=== PATIENT | male | born 1945 | race Caucasian/White ===

== ENCOUNTER 2017-06-27 12:52 | Outpatient (CLI) | payer MEDICARE ==
[2017-06-27 15:12] LABS: #Basophils 0.1 thou/uL (0.0-0.2); #Lymphocytes 1.1 thou/uL (1.20-3.40); #Monocytes 0.5 thou/uL (0.11-0.59); #Neutrophils 6.5 thou/uL (1.40-6.50); %Basophils 0.7 % (0.0-1.0); %Eosinophils 0.5 % (0.0-10.0); %Lymphocytes 12.9 % (21.0-51.0); %Monocytes 5.6 % (0.0-10.0); %Neutrophils 80.3 % (42.0-75.0); Hemoglobin 14.8 g/dL (14.0-18.0); Mean Corpuscular HGB CONC 33.1 g/dL (32.0-36.0); Mean Corpuscular Hemoglobin 31.6 pg (27.0-31.0); Mean Corpuscular Volume 95.4 fl (80.0-94.0); Mean Platelet Volume 8.1 fL (7.4-10.4); Platelet Count 197 thou/uL (130-400); RBC Distribution Width 12.1 % (11.5-14.5); Red Blood Cell (RBC) Count 4.69 mill/uL (4.70-6.10); White Blood Cell (WBC) Count 8.1 thou/uL (4.8-10.8)
[2017-06-27 15:34] LABS: ALT (SGPT) 40 U/L (8-55); AST (SGOT) 20 U/L (5-34); Albumin 4.5 g/dL (3.4-4.8); Alkaline Phosphatase 67 U/L (40-150); Anion Gap 15 mmol/L (10-20); BUN (Urea Nitrogen) 20 mg/dL (8.4-25.7); Bilirubin, Total 0.6 mg/dL (0.2-1.2); Calc. Creatinine Clearance 0 mL/min (70-130); Calcium 11.5 mg/dL (7.8-10.44); Carbon Dioxide 27 mmol/L (23-31); Chloride 102 mmol/L (98-107); Estimated GFR-MDRD 49; Globulin 2.4 g/dL (2.4-3.5); Glucose 144 mg/dL (83-110); Potassium 4.4 mmol/L (3.5-5.1); Protein, Total 6.9 g/dL (5.8-8.1); Sodium 140 mmol/L (136-145)
--- NOTE | 2017-06-27 23:46 | EKG ---
Test Reason : JAMES Blood Pressure : / mmHG Vent. Rate : 080 BPM Atrial Rate : 097 BPM P-R Int : 000 ms QRS Dur : 162 ms QT Int : 468 ms P-R-T Axes : 000 270 058 degrees QTc Int : 539 ms Electronic ventricular pacemaker When compared with ECG of 08-NOV-2014 13:24, Vent. rate has decreased BY 7 BPM Confirmed by Shayy DOMINGUEZ ([id number]) on 06/27/2017 11:46:11 PM Referred By: ELENI Confirmed By:Shayy DOMINGUEZ
== END 2017-06-27 12:53 | disposition home or self-care (01) ==
LOC: LABBT 12:52
PROVIDERS: ATTEND Surgery
DX: K40.90 Unilateral inguinal hernia, without obstruction or gangrene, not specified as recurrent (principal)
CPT/HCPCS: 80053; 85025; 93005; 93010

== ENCOUNTER 2017-07-04 10:42 | Day surgery (SDC) | payer MEDICARE ==
[2017-06-27 13:21] VITALS: BMI 28.7
[2017-07-04] MEDS ORDERED: Fentanyl 100 MCG/2 ML VIAL ONE ×2 (12:15)
[2017-07-04] MEDS ORDERED: Bupivacaine 0.25% HCL 30 ML VIAL ONE (12:42)
[2017-07-04] MEDS ORDERED: Lidocaine 1% w/Epinephrine 1:200K 30 ML VIAL ONE (12:42)
--- NOTE | 2017-07-04 13:43 | OP ---
PREOPERATIVE DIAGNOSIS: Left inguinal hernia. SURGEON: Gino Johnson M.D. PROCEDURE PERFORMED: Left inguinal hernia repair with mesh. INDICATIONS: This is a 71-year-old male with enlarging left inguinal hernia causing pain. FINDINGS: Left indirect inguinal hernia. PROCEDURE IN DETAIL: After informed consent was obtained, the patient was taken to the operating [facility] and given general mask anesthesia, placed in supine position. His groin area was prepped and drape d in the usual fashion. Local anesthesia infiltrated subcutaneously and deep. A transverse left ing uinal incision was performed. Subcu divided sharply. The fascia incised in the direction of its fib ers through the external ring. The spermatic cord isolated with a Manas drain. The cord was separ ated. Hernia sac was found. This was dissected from surrounding cord structures to the internal rin g and reduced. Reduction was maintained utilizing a PHS hernia system placed in the preperitoneal sp amadou. Anterior, it was laid out, sutured the pubic tubercle medially, tucked under the external obliq ue fascia laterally. A notch was cut out for the spermatic cord. Hemostasis was assured. The cord placed anatomically. The external oblique fascia closed with a running 3-0 Vicryl. Rodger's closed with interrupted 3-0 Vicryl and the skin closed with a running subcuticular 4-0 Rapide. Steri-Strips applied. Sterile bandage applied. The patient tolerated the procedure well and transferred to [facility] in good condition. Sponge and needle count verified correct x2.
[2017-07-04] MEDS ORDERED: Lidocaine 1% PF 5 ML VIAL ONE (14:49)
[2017-07-04] MEDS ORDERED: ePHEDrine/0.9% NaCl/PF SYRINGE 50 mg/10 ml ONE (14:49)
[2017-07-04] MEDS ORDERED: Ondansetron HCl/PF 4 MG/2 ML Vial ONE (14:49)
[2017-07-04] MEDS ORDERED: PHENYLEPHRINE-NS 100 MCG/ML 10 ML SYRINGE ONE (14:49)
[2017-07-04] MEDS ORDERED: PROPOFOL 200 MG/20 ML VIAL ONE (14:49)
[2017-07-04] MEDS ORDERED: Dexamethasone 20 MG/5 ML VIAL ONE (14:49)
== END 2017-07-04 15:30 | disposition home or self-care (01) ==
LOC: SDC 10:42
PROVIDERS: ATTEND Surgery
PROC: 0YU60JZ Supplement Left Inguinal Region with Synthetic Substitute, Open Approach (ICD-10-PCS; principal; 2017-07-04)
DX: K40.90 Unilateral inguinal hernia, without obstruction or gangrene, not specified as recurrent (principal); I10 Essential (primary) hypertension; M19.90 Unspecified osteoarthritis, unspecified site; Z79.899 Other long term (current) drug therapy; Z96.649 Presence of unspecified artificial hip joint; Z86.73 Personal history of transient ischemic attack (TIA), and cerebral infarction without residual deficits
CPT/HCPCS: C1781; J1100; J2001; J2405; J2704; J3010; S0020

== ENCOUNTER 2017-08-08 10:36 | Outpatient (CLI) | payer MEDICARE | END 2017-08-08 10:37 | disposition home or self-care (01) | LOC: BICULT 10:36 | PROVIDERS: ATTEND Surgery | DX: K91.871 Postprocedural hematoma of a digestive system organ or structure following other procedure (principal); R19.09 Other intra-abdominal and pelvic swelling, mass and lump | CPT/HCPCS: 76999 ==